=== PATIENT | male | born 1985 | race Hispanic/Latino ===

== ENCOUNTER 2016-10-20 11:56 | Emergency (ER) | payer BC ==
[~2016-10-20] VITALS: Ht 180.3 cm; Wt 141.4 kg
[~2016-10-20 11:56] MED LIST: CIPRO500 MG OR; CIPROFLOXACN500 MG PO; LORTAB 10 PO; LORTAB 5-325 MG1 TAB PO; TORADOL PO; ZOFRAN ODT4 MG PO; ZOFRAN ODT4 MG SL
[2016-10-20] MEDS ORDERED: METO25TAB PO (12:37)
[2016-10-20] MEDS ORDERED: ZESTRIL10 MG PO (12:37)
[2016-10-20] MEDS ORDERED: METFORMIN500 MG PO (12:38)
[2016-10-20] MEDS ORDERED: MEDDOSEPAK PO (14:30)
[2016-10-20] MEDS ORDERED: LORTAB 10-325 M1 TAB PO (14:30)
[2016-10-20 14:42] VITALS: BP 119/76
== END 2016-10-20 14:48 | disposition home or self-care (01) | DRG 563 ==
LOC: ED 11:56
DX: S39.012A Strain of muscle, fascia and tendon of lower back, initial encounter (principal); M51.37 Other intervertebral disc degeneration, lumbosacral region; X50.0XXA Overexertion from strenuous movement or load, initial encounter; Y93.89 Activity, other specified; Y92.89 Other specified places as the place of occurrence of the external cause